=== PATIENT | female | born 1935 | race Caucasian/White ===

== ENCOUNTER 2017-10-10 08:15 | Day surgery (SDC) | payer MEDICARE, BC ==
[~2017-10-10] VITALS: Ht 154.9 cm; Wt 51.7 kg
[~2017-10-10 08:15] MED LIST: ADLT ASA LOW81 MG PO; AMLODIPINE BESYL5 MG PO; AMLODIPINE2.5 MG PO; ASPIRIN LOW DOS81 M2 PO; ATORVASTATIN CA10 MG PO; ENALAPRIL MALEAT5 MG PO; LASIX 20 MG TAB20 MG PO; LASIX 40 MG TAB40 MG PO; LEVOTHYROXIN112 MC1 PO; LEVOTHYROXIN50 MC1 PO; LEVOTHYROXIN50 MCG PO; METO25TAB PO; METOPROLOL SUCC25 MG PO; POTASSIUM99 MG PO; PROAIR HFA IN; TRAMADOL HYDROC50 MG PO; ULTRAM50 M1 PO; ZOFRAN ODT4 MG PO
[2017-10-10 11:35] VITALS: BP 95/55
== END 2017-10-10 12:10 | disposition home or self-care (01) ==
LOC: ENDO 08:15 → ORM 09:55 → ENDO 10:20 → ORM 10:45 → ENDO 12:10
PROVIDERS: ATTEND Surgery
PROC: 0DJ08ZZ Inspection of Upper Intestinal Tract, Via Natural or Artificial Opening Endoscopic (ICD-10-PCS; principal; 2017-10-10)
DX: R13.10 Dysphagia, unspecified (principal); R11.2 Nausea with vomiting, unspecified; K31.89 Other diseases of stomach and duodenum; Z90.49 Acquired absence of other specified parts of digestive tract